=== PATIENT | male | born 1940 | race Caucasian/White ===

== ENCOUNTER 2016-11-15 07:33 | Day surgery (SDC) | payer OTHER ==
[2016-11-15] VITALS (10 sets, daily range): BP systolic 111–157; BP diastolic 62–79; PULSE 59; RESP 12–20; O2SAT 95
[~2016-11-15 07:33] MED LIST: ALLO300T2 PO; APRE30TA2 PO; ATEN25TA PO; ATOR80TA PO; FLEC150T PO; GABA-502 PO; LOSA100T29 PO; POTA-62 PO; WARF5TAB7 PO
[2016-11-15] MEDS ORDERED: FINA5TAB9 PO (08:30)
[2016-11-15] MEDS ORDERED: TAMS0.4C98 PO (08:30)
[2016-11-15] MEDS ORDERED: WARF5TAB9 PO (08:30)
[2016-11-15] MEDS ORDERED: Methohexital 10 mg/mL 50 mL Inj IV ONE (08:56)
--- NOTE | 2016-11-15 09:58 | NUR ---
Cardioversion: Pt arrived to [facility] for scheduled cardioversion at 0740 with at bedside, tele afib 50-60s, no c/o pain or SOB. IV started in R hand, VSS. Dr. Gómez at bedside at 0900 along with RT. Cardioverted with 1 shock at 0909 (see flowsheet). Pt awake and alert, VSS by 0925, EKG confirmed Sinus mook 40-50s. Pt tolerating po intake, no c/o pain, requesting to be discharged home. States understanding to d/c instructions and f/u plan of care. IV d/c'd intact from R hand, pt ambulated self off unit with and all of his belongings at 0955.
--- NOTE | 2016-11-15 12:56 | OP ---
[address] [address] OPERATIVE REPORT PATIENT: EUGENIE BELCHER : 1940 MR#: [id number] ADMIT: 11/15/2016 JOB ID: [id number] DATE OF SURGERY: 11/15/2016 SURGEON: Josie Canales M.D. PREOPERATIVE DIAGNOSIS(ES): Paroxysmal atrial fibrillation. POSTOPERATIVE DIAGNOSIS(ES): Paroxysmal atrial fibrillation. PATIENT PROFILE: The patient is a 76-year-old male with history of paroxysmal atrial fibrillation since February of 2012. He had five cardioversions in the past with the last one on June 04, 2016. The patient went back into atrial fibrillation in September 2016. PROCEDURE: Synchronous cardioversion. COMPLICATIONS: None. METHOD: Synchronous cardioversion was performed in the [facility] under IV anesthesia with 1.5 mg of Versed and 55 mg of Brevital. It was delivered with biphasic 120 joules. The atrial fibrillation was successfully converted to a normal sinus rhythm.
== END 2016-11-15 23:59 | disposition home or self-care (01) ==
LOC: SOUO 07:33
PROVIDERS: ATTEND Internal Medicine Interventional Cardiology
DX: I48.0 Paroxysmal atrial fibrillation (principal); Z79.01 Long term (current) use of anticoagulants; I10 Essential (primary) hypertension; G47.33 Obstructive sleep apnea (adult) (pediatric)